=== PATIENT | male | born 1965 | race African-American/Black ===

== ENCOUNTER 2016-03-08 16:45 | Outpatient (RCR) | payer OTHER | END 2016-03-30 09:43 | disposition still patient (30) | LOC: WSPT 16:45 | DX: M54.2 Cervicalgia (principal) | CPT/HCPCS: G0283-GP; G8981-GP; G8982-GP; G8983-GP ==

== ENCOUNTER 2018-01-09 12:00 | Emergency (ER) | payer OTHER ==
[~2018-01-09] VITALS: Ht 172.7 cm; Wt 72.7 kg
[~2018-01-09 12:00] MED LIST: CATAPRES 0.1MG0.1 MG PO; CRESTOR5 MG PO; ELIQUIS 5MG PO; FIORICET 325 MG1 TA1 PO; FLEXERIL 1010 MG/TAB PO; FLONASE SENSIM9.9 ML NS; LEXAPRO 10MG10 MG PO; MEDROL 4MG DOSPA4 MG PO; MITIGARE0.6 MG; PATANOL OPHTHALM5 ML OD; ZESTRIL 20MG TA20 MG PO; ZETIA 10MG TAB10 MG PO; ZYLOPRIM 300MG300 MG PO; ZYRTEC 10MG10 MG PO
[2018-01-09 12:08] VITALS: BP 127/79; PULSE 102; TEMP 98.6
== END 2018-01-09 14:05 | disposition left against medical advice (07) ==
LOC: COL.ER 12:00
DX: R51 Headache (principal)

== ENCOUNTER 2018-01-11 23:25 | Emergency (ER) | payer OTHER ==
[~2018-01-11] VITALS: Ht 172.7 cm; Wt 70.5 kg
[2018-01-11 23:29] VITALS: TEMP 98.6
[2018-01-12] MEDS ORDERED: REGLAN 10MG10 MG/TAB PO (01:31)
[2018-01-12 01:56] VITALS: BP 118/69; PULSE 88
[2018-01-13] MEDS ORDERED: FIORICET 325 MG1 TA1 PO (14:34)
== END 2018-01-12 01:58 | disposition home or self-care (01) ==
LOC: COL.ER 23:25
DX: R51 Headache (principal)
CPT/HCPCS: J1100; J1200; J1885; J2765; J7030

== ENCOUNTER 2018-01-13 12:43 | Emergency (ER) | payer OTHER ==
[~2018-01-13] VITALS: Ht 172.7 cm; Wt 70.5 kg
[~2018-01-13 12:43] MED LIST changes: +REGLAN 10MG10 MG/TAB PO
[2018-01-13 12:59] VITALS: TEMP 97.4
[2018-01-13] MEDS ORDERED: FIORICET 325 MG1 TA1 PO (14:34)
[2018-01-13 14:41] VITALS: BP 128/81; PULSE 70
[2018-01-14] MEDS ORDERED: MEDROL 4MG DOSPA4 MG PO (21:38)
[2018-01-14] MEDS ORDERED: COMPAZINE 110 MG/TAB PO (21:38)
[2018-01-14] MEDS ORDERED: FLEXERIL 1010 MG/TAB PO (21:38)
== END 2018-01-13 14:41 | disposition home or self-care (01) ==
LOC: COL.ER 12:43
DX: R51 Headache (principal); I10 Essential (primary) hypertension; E78.5 Hyperlipidemia, unspecified; Z86.718 Personal history of other venous thrombosis and embolism
CPT/HCPCS: J1885; J2405

== ENCOUNTER 2018-01-14 19:14 | Emergency (ER) | payer OTHER ==
[~2018-01-14] VITALS: Ht 172.7 cm; Wt 70.5 kg
[2018-01-14 19:17] VITALS: TEMP 98.3
[2018-01-14] MEDS ORDERED: COMPAZINE 110 MG/TAB PO (21:38)
[2018-01-14] MEDS ORDERED: MEDROL 4MG DOSPA4 MG PO (21:38)
[2018-01-14] MEDS ORDERED: FLEXERIL 1010 MG/TAB PO (21:38)
[2018-01-14 22:10] VITALS: BP 140/94; PULSE 96
== END 2018-01-14 22:11 | disposition home or self-care (01) ==
LOC: COL.ER 19:14
DX: R51 Headache (principal); I10 Essential (primary) hypertension; M48.02 Spinal stenosis, cervical region; Z79.899 Other long term (current) drug therapy
CPT/HCPCS: J0780; J1200; J1630; J1885; J7030

== ENCOUNTER → 2018-01-16 | Outpatient (CLI) | payer OTHER ==
[~2018-01-16] MED LIST changes: +COMPAZINE 110 MG/TAB PO
== END ==
LOC: MHCPAIN 15:36
DX: G89.29 Other chronic pain (principal); M47.812 Spondylosis without myelopathy or radiculopathy, cervical region; R51 Headache; M54.81 Occipital neuralgia
CPT/HCPCS: G0463

== ENCOUNTER → 2018-01-18 | Outpatient (CLI) | payer OTHER ==
[2018-01-18 15:32] LABS: BASO % 0.4 % (0.0-2.0); GRAN # 7.8 (1.4-6.5); GRAN % 81.5 % (42.2-75.2); HEMOGLOBIN 12.1 g/dl (13.5-18.0); LYMPH # 0.8 (1.2-3.4); LYMPH % 8.1 % (20.0-51.0); MEAN CELL VOLUME 86 fl (80.0-100.0); MEAN CORPUSCULAR HEMOGLOBIN 27 pg (27.0-31.0); MEAN CORPUSCULAR HGB CONC 32 g/dl (33.0-37.0); MEAN PLATELET VOLUME 8.8 fl (7.4-10.4); MONO # 0.9 (0.1-0.6); MONO % 9.5 % (1.7-9.3); PLATELET COUNT 337 K/mm3 (130-400); RED BLOOD COUNT 4.41 M/mm3 (4.20-5.60); REDCELL DISTRIBUTION WIDTH-CV 15.5 % (11.5-14.5)
[2018-01-18 15:54] LABS: ERYTHROCYTE SEDIMENTATION RATE 76 mm/hr (0-15)
[2018-01-18 16:02] LABS: ALBUMIN 3.9 gm/dL (3.5-5.0); BILIRUBIN,TOTAL 0.3 mg/dL (0.0-1.0); C-REACTIVE PROTEIN 4.8 mg/dL (0.0-0.9); CALCIUM 9.7 mg/dL (8.4-10.2); CREATININE, serum 1.19 mg/dL (0.66-1.25); POTASSIUM 4.4 mmol/L (3.4-5.0); TOTAL PROTEIN 7.7 gm/dL (6.4-8.2)
== END ==
LOC: COL.LAB 15:05
PROVIDERS: Internal Medicine Infectious Disease
DX: B99.9 Unspecified infectious disease (principal)

== ENCOUNTER → 2018-01-21 | Outpatient (CLI) | payer OTHER | LOC: MHCPAIN 09:06 | DX: M54.12 Radiculopathy, cervical region (principal); M50.90 Cervical disc disorder, unspecified, unspecified cervical region; R51 Headache ==

== ENCOUNTER → 2018-01-28 | Outpatient (CLI) | payer OTHER | LOC: MHCPAIN 09:27 | DX: G89.29 Other chronic pain (principal); M50.90 Cervical disc disorder, unspecified, unspecified cervical region; M54.12 Radiculopathy, cervical region; M54.81 Occipital neuralgia; R51 Headache | CPT/HCPCS: G0463 ==

== ENCOUNTER → 2018-01-31 | Outpatient (CLI) | payer OTHER | LOC: MHCPAIN 09:30 | DX: M54.12 Radiculopathy, cervical region (principal); M50.90 Cervical disc disorder, unspecified, unspecified cervical region ==

== ENCOUNTER → 2018-02-05 | Outpatient (CLI) | payer OTHER | LOC: MHCPAIN 13:25 | DX: G89.29 Other chronic pain (principal); M50.90 Cervical disc disorder, unspecified, unspecified cervical region; M54.81 Occipital neuralgia; R51 Headache | CPT/HCPCS: G0463 ==

== ENCOUNTER → 2018-02-27 | Outpatient (CLI) | payer OTHER | LOC: MHCPAIN 07:55 | DX: G89.29 Other chronic pain (principal); M50.90 Cervical disc disorder, unspecified, unspecified cervical region; M54.81 Occipital neuralgia; R51 Headache | CPT/HCPCS: G0463 ==

== ENCOUNTER → 2018-03-28 | Outpatient (CLI) | payer OTHER | LOC: MHCPAIN 07:42 | DX: M47.812 Spondylosis without myelopathy or radiculopathy, cervical region (principal); M54.12 Radiculopathy, cervical region; R51 Headache | CPT/HCPCS: J1100; J2250; J3010 ==

== ENCOUNTER → 2018-04-30 | Outpatient (CLI) | payer OTHER | LOC: MHCPAIN 10:58 | DX: G89.29 Other chronic pain (principal); M54.81 Occipital neuralgia; R51 Headache; M47.812 Spondylosis without myelopathy or radiculopathy, cervical region | CPT/HCPCS: G0463 ==

== ENCOUNTER → 2018-07-26 | Outpatient (CLI) | payer OTHER | LOC: COL.CARD 08:10 | DX: R55 Syncope and collapse (principal) ==

== ENCOUNTER → 2018-09-30 | Outpatient (CLI) | payer OTHER | LOC: MHCPAIN 10:47 | DX: G89.29 Other chronic pain (principal); M54.81 Occipital neuralgia; M47.812 Spondylosis without myelopathy or radiculopathy, cervical region; R51 Headache | CPT/HCPCS: G0463 ==

== ENCOUNTER → 2018-10-10 | Outpatient (CLI) | payer OTHER | LOC: MHCPAIN 08:03 | DX: M47.812 Spondylosis without myelopathy or radiculopathy, cervical region (principal); M54.12 Radiculopathy, cervical region | CPT/HCPCS: J1100; J2250; J3010 ==

== ENCOUNTER → 2018-12-10 | Outpatient (CLI) | payer OTHER | LOC: MHCPAIN 10:53 | DX: G89.29 Other chronic pain (principal); M54.81 Occipital neuralgia; R51 Headache; M47.812 Spondylosis without myelopathy or radiculopathy, cervical region | CPT/HCPCS: G0463 ==

== ENCOUNTER → 2019-05-06 | Outpatient (CLI) | payer OTHER | LOC: MHCPAIN 10:59 | DX: R51 Headache (principal); M54.81 Occipital neuralgia; G89.29 Other chronic pain | CPT/HCPCS: G0463 ==

== ENCOUNTER → 2019-05-29 | Outpatient (CLI) | payer OTHER | LOC: MHCPAIN 07:51 | DX: M54.2 Cervicalgia (principal) | CPT/HCPCS: J1100; J2250; J2310; J3010 ==

== ENCOUNTER → 2019-08-26 | Outpatient (CLI) | payer OTHER | LOC: MHCPAIN 12:31 | DX: M47.812 Spondylosis without myelopathy or radiculopathy, cervical region (principal); R51 Headache; M54.2 Cervicalgia; G89.29 Other chronic pain | CPT/HCPCS: G0463 ==

== ENCOUNTER → 2019-12-23 | Outpatient (CLI) | payer OTHER | LOC: MHCPAIN 12:15 | DX: M47.812 Spondylosis without myelopathy or radiculopathy, cervical region (principal); M54.2 Cervicalgia; R51.9 Headache, unspecified | CPT/HCPCS: G0463 ==

== ENCOUNTER 2020-01-29 08:16 | Inpatient (IN) | payer OTHER ==
[~2020-01-29] VITALS: Ht 172.7 cm; Wt 75.3 kg
[~2020-01-29 08:16] MED LIST changes: -PATANOL OPHTHALM5 ML OD; +PATANOL OPHTHALM5 ML OU
[2020-02-05] VITALS (12 sets, daily range): BP systolic 73–114; BP diastolic 54–77; PULSE 73–114; TEMP 98.1–98.6
[2020-02-05 05:56] LABS: EOS # 0.1 (0.0-0.7); EOS % 2.3 % (0-4.0); GRAN # 2.3 (1.4-6.5); GRAN % 57.7 % (42.2-75.2); HEMATOCRIT 46.5 % (42.0-52.0); HEMOGLOBIN 15.4 g/dl (13.5-18.0); LYMPH % 25.2 % (20.0-51.0); MEAN CELL VOLUME 88 fl (80.0-100.0); MEAN CORPUSCULAR HEMOGLOBIN 29 pg (27.0-31.0); MEAN CORPUSCULAR HGB CONC 33 g/dl (33.0-37.0); MONO # 0.5 (0.1-0.6); MONO % 13.5 % (1.7-9.3); PLATELET COUNT 191 K/mm3 (130-400); RED BLOOD COUNT 5.29 M/mm3 (4.20-5.60); REDCELL DISTRIBUTION WIDTH-CV 13.8 % (11.5-14.5)
[2020-02-05 06:10] LABS: CALCIUM 9.7 mg/dL (8.4-10.2); CREATININE, serum 1.72 (0.66-1.25); POTASSIUM 4.4 mmol/L (3.4-5.0); TOTAL PROTEIN 7.9 gm/dL (6.4-8.2)
[2020-02-05] MEDS ORDERED: MASON NATURAL2000 IU PO (06:13)
[2020-02-05] MEDS ORDERED: TOPAMAX50 MG PO (06:13)
[2020-02-05 11:43] LABS: HEMATOCRIT 31.7 % (42.0-52.0); HEMOGLOBIN 10.4 g/dl (13.5-18.0)
[2020-02-06] VITALS (16 sets, daily range): BP systolic 83–105; BP diastolic 52–74; PULSE 71–93; TEMP 97.6–98.2
[2020-02-06 06:58] LABS: BASO % 0.2 % (0.0-2.0); GRAN # 3.8 (1.4-6.5); GRAN % 70.4 % (42.2-75.2); LYMPH # 0.9 (1.2-3.4); LYMPH % 15.8 % (20.0-51.0); MEAN CELL VOLUME 89 fl (80.0-100.0); MEAN CORPUSCULAR HGB CONC 33 g/dl (33.0-37.0); MEAN PLATELET VOLUME 9.6 fl (7.4-10.4); MONO # 0.7 (0.1-0.6); MONO % 13.4 % (1.7-9.3); PLATELET COUNT 129 K/mm3 (130-400); RED BLOOD COUNT 2.65 M/mm3 (4.20-5.60); REDCELL DISTRIBUTION WIDTH-CV 13.3 % (11.5-14.5)
[2020-02-06 06:59] LABS: HEMATOCRIT 23.7 % (42.0-52.0); HEMOGLOBIN 7.7 g/dl (13.5-18.0); MEAN CORPUSCULAR HEMOGLOBIN 29 pg (27.0-31.0)
[2020-02-06 07:07] LABS: CALCIUM 8.1 mg/dL (8.4-10.2); CREATININE, serum 1.5 (0.66-1.25); POTASSIUM 4.1 mmol/L (3.4-5.0)
[2020-02-06 15:36] LABS: HEMATOCRIT 20.1 % (42.0-52.0); HEMOGLOBIN 6.7 g/dl (13.5-18.0)
[2020-02-07 03:41] VITALS: BP 90/61; PULSE 77; TEMP 98.7
[2020-02-07 07:57] VITALS: BP 101/66; PULSE 94; TEMP 98.8
[2020-02-07 08:16] LABS: HEMOGLOBIN 8.9 g/dl (13.5-18.0)
[2020-02-07 12:09] VITALS: BP 115/66; PULSE 82; TEMP 98.5
[2020-02-07 15:20] VITALS: BP 114/61; PULSE 79; TEMP 98.2
[2020-02-07 19:50] VITALS: BP 111/72; PULSE 81; TEMP 98.6
[2020-02-07 23:45] VITALS: BP 111/67; PULSE 80; TEMP 98.4
[2020-02-08 04:00] VITALS: BP 96/67; PULSE 75; TEMP 97.9
[2020-02-08 06:44] LABS: HEMATOCRIT 29.3 % (42.0-52.0); HEMOGLOBIN 9.6 g/dl (13.5-18.0)
[2020-02-08 08:14] VITALS: BP 107/71; PULSE 80; TEMP 98.4
[2020-02-08 11:34] VITALS: BP 118/78; PULSE 73; TEMP 98
[2020-02-08 15:26] VITALS: BP 113/72; PULSE 80; TEMP 98.3
[2020-02-08 19:32] VITALS: BP 100/75; PULSE 96; TEMP 98.1
[2020-02-08 23:40] VITALS: BP 97/70; PULSE 97; TEMP 98.1
[2020-02-09 04:15] VITALS: BP 93/71; PULSE 92; TEMP 98.4
[2020-02-09 07:10] VITALS: BP 97/62; PULSE 91; TEMP 98.4
== END 2020-02-09 12:23 | disposition home or self-care (01) | DRG 707 ==
LOC: INPTSU 02-05 05:27 → SURG 02-05 05:27
PROVIDERS: Urology; ADMIT Urology
PROC: 0VT00ZZ Resection of Prostate, Open Approach (ICD-10-PCS; principal; 2020-02-06)
DX: C61 Malignant neoplasm of prostate (principal); D62 Acute posthemorrhagic anemia; K56.7 Ileus, unspecified; I95.9 Hypotension, unspecified; R00.0 Tachycardia, unspecified
CPT/HCPCS: J0690; J1100; J2250; J2370; J2405; J2704; J2795; J3010; J3480; J7050; J7120; P9016

== ENCOUNTER → 2021-02-25 | Outpatient (CLI) | payer OTHER ==
[~2021-02-25] MED LIST changes: +MASON NATURAL2000 IU PO; +TOPAMAX50 MG PO
== END ==
LOC: COL.RAD 07:03
DX: M51.27 Other intervertebral disc displacement, lumbosacral region (principal); M48.061 Spinal stenosis, lumbar region without neurogenic claudication

== ENCOUNTER → 2021-03-30 | Outpatient (CLI) | payer OTHER | LOC: MHCPAIN 10:48 | DX: M47.812 Spondylosis without myelopathy or radiculopathy, cervical region (principal); M54.2 Cervicalgia; M54.81 Occipital neuralgia; R51.9 Headache, unspecified | CPT/HCPCS: G0463 ==

== ENCOUNTER → 2021-04-21 | Outpatient (CLI) | payer OTHER | LOC: MHCPAIN 08:45 | DX: M47.812 Spondylosis without myelopathy or radiculopathy, cervical region (principal); M54.2 Cervicalgia; R51.9 Headache, unspecified | CPT/HCPCS: J1100; J2250; J3010 ==

== ENCOUNTER → 2021-06-21 | Outpatient (CLI) | payer OTHER | LOC: MHCPAIN 11:21 | DX: M54.2 Cervicalgia (principal); M47.812 Spondylosis without myelopathy or radiculopathy, cervical region; R51.9 Headache, unspecified | CPT/HCPCS: G0463 ==

== ENCOUNTER 2021-12-08 21:04 | Emergency (ER) | payer OTHER ==
[~2021-12-08] VITALS: Ht 172.7 cm; Wt 77.3 kg
[2021-12-08 21:19] VITALS: TEMP 98.4
[2021-12-08 21:38] LABS: BASO % 0.8 % (0.0-2.0); EOS # 0.1 K/mm3 (0.0-0.7); EOS % 1.4 % (0.0-4.0); GRAN # 2.4 K/mm3 (1.4-6.5); GRAN % 46.9 % (42.2-75.2); HEMATOCRIT 45.8 % (42.0-52.0); HEMOGLOBIN 15.1 g/dl (13.5-18.0); LYMPH % 39.9 % (20.0-51.0); MEAN CELL VOLUME 89 fl (80.0-100.0); MEAN CORPUSCULAR HEMOGLOBIN 29 pg (27-31); MEAN CORPUSCULAR HGB CONC 33 g/dl (33.0-37.0); MEAN PLATELET VOLUME 9.4 fl (7.4-10.4); MONO # 0.5 K/mm3 (0.1-0.6); MONO % 10.8 % (1.7-9.3); PLATELET COUNT 223 K/mm3 (130-400); RED BLOOD COUNT 5.16 M/mm3 (4.20-5.60); REDCELL DISTRIBUTION WIDTH-CV 13.7 % (11.5-14.5)
[2021-12-08 21:45] LABS: INR 1.1 (0.8-3.0); PROTHROMBIN TIME 12.2 SECONDS (9.7-12.8)
[2021-12-08 21:57] LABS: ALANINE AMINOTRANSFERASE 24 U/L (0-55); ALBUMIN 4.4 gm/dL (3.5-5.0); ALKALINE PHOSPHATASE 119 U/L (40-150); ANION GAP 16 mmol/L (7-16); AST,SGOT 21 U/L (5-34); BILIRUBIN,TOTAL 0.4 mg/dL (0.2-1.2); BLOOD UREA NITROGEN 18 mg/dL (8-26); CALCIUM 9.5 mg/dL (8.4-10.2); CARBON DIOXIDE 17 mmol/L (22-29); CHLORIDE 110 mmol/L (98-107); CREATININE, serum 1.77 mg/dL (0.72-1.25); GLUCOSE 116 mg/dL (70-99); POTASSIUM 3.7 mmol/L (3.5-4.5); SODIUM 143 mmol/L (136-145); TOTAL PROTEIN 8.1 gm/dL (6.2-8.1)
[2021-12-08 21:58] LABS: ALCOHOL(ethanol),MEDICAL < 10 mg/dL (0-10)
[2021-12-08] MEDS ORDERED: CEPHALEXIN500 M1 PO ×2 (23:08)
[2021-12-08] MEDS ORDERED: NORCO 325 MG-51 TAB PO (23:32)
[2021-12-08 23:45] VITALS: BP 144/95; PULSE 110
[2021-12-09] MEDS ORDERED: CEPHALEXIN500 M1 PO (18:06)
== END 2021-12-08 23:46 | disposition home or self-care (01) ==
LOC: COL.ER 21:04
PROVIDERS: Emergency Medicine
DX: S01.511A Laceration without foreign body of lip, initial encounter (principal); Z86.718 Personal history of other venous thrombosis and embolism; Z79.01 Long term (current) use of anticoagulants; W17.89XA Other fall from one level to another, initial encounter
CPT/HCPCS: J2270; J2405; J7120

== ENCOUNTER 2023-02-25 18:19 | Emergency (ER) | payer OTHER ==
[~2023-02-25] VITALS: Ht 172.7 cm; Wt 75.0 kg
[~2023-02-25 18:19] MED LIST changes: +CEPHALEXIN500 M1 PO; +NORCO 325 MG-51 TAB PO
[2023-02-25 18:22] VITALS: TEMP 98.1
[2023-02-25 19:21] LABS: COLLECTION METHOD CLEAN CATCH
[2023-02-25 19:52] LABS: URINE APPEARANCE Cloudy (CLEAR/HAZY); URINE BLOOD 3+ (NEGATIVE); URINE COLOR Amber (YELLOW); URINE GLUCOSE Negative (NEGATIVE); URINE KETONE Negative (NEGATIVE); URINE NITRATE Negative (NEGATIVE); URINE PROTEIN(semi-quant) 1+ (NEGATIVE); URINE UROBILINOGEN 0.2 E.U/dL (0.2-1.0)
[2023-02-25 19:53] LABS: SQUAMOUS EPITHELIAL 0-2 /hpf (0-10); URINE BACTERIA Rare /hpf (NONE SEEN); URINE RBC >50 /hpf (0-2)
[2023-02-25 20:09] LABS: BASO % 0.8 % (0.0-2.0); GRAN # 2.4 K/mm3 (1.4-6.5); GRAN % 60.2 % (42.2-75.2); HEMATOCRIT 45.5 % (42.0-52.0); HEMOGLOBIN 15.1 g/dl (13.5-18.0); LYMPH % 24.2 % (20.0-51.0); MEAN CELL VOLUME 88 fl (80.0-100.0); MEAN CORPUSCULAR HEMOGLOBIN 29 pg (27-31); MEAN CORPUSCULAR HGB CONC 33 g/dl (33.0-37.0); MEAN PLATELET VOLUME 9.3 fl (7.4-10.4); MONO # 0.6 K/mm3 (0.1-0.6); MONO % 14.5 % (1.7-9.3); PLATELET COUNT 161 K/mm3 (130-400); RED BLOOD COUNT 5.19 M/mm3 (4.20-5.60); REDCELL DISTRIBUTION WIDTH-CV 13.1 % (11.5-14.5)
[2023-02-25 20:24] LABS: ALBUMIN 3.8 gm/dL (3.5-5.0); BILIRUBIN,TOTAL 0.4 mg/dL (0.2-1.2); C-REACTIVE PROTEIN 0.45 mg/dL (0.00-0.50); CALCIUM 9.6 mg/dL (8.4-10.2); CREATININE, serum 1.73 mg/dL (0.72-1.25); POTASSIUM 4.1 mmol/L (3.5-4.5); TOTAL PROTEIN 7.6 gm/dL (6.2-8.1)
[2023-02-25] MEDS ORDERED: LEVAQUIN 5500 MG/TA1 PO (23:08)
[2023-02-25] MEDS ORDERED: ZOFRAN ODT4 MG PO (23:08)
[2023-02-25] MEDS ORDERED: PERCOCET 325 MG1 TA2 PO (23:08)
[2023-02-25 23:15] VITALS: BP 112/94; PULSE 78
== END 2023-02-25 23:15 | disposition home or self-care (01) ==
LOC: COL.ER 18:19
PROVIDERS: Nurse Practitioner
DX: N13.2 Hydronephrosis with renal and ureteral calculous obstruction (principal)
CPT/HCPCS: J2270; J7030; Q9967

== ENCOUNTER 2024-01-09 12:33 | Emergency (ER) | payer OTHER ==
[~2024-01-09] VITALS: Ht 172.7 cm; Wt 72.7 kg
[~2024-01-09 12:33] MED LIST changes: +LEVAQUIN 5500 MG/TA1 PO; +PERCOCET 325 MG1 TA2 PO; +ZOFRAN ODT4 MG PO
[2024-01-09 13:19] VITALS: TEMP 98.2
[2024-01-09] MEDS ORDERED: PROTONIX 40MG T40 MG PO (16:28)
[2024-01-09] MEDS ORDERED: ZYRTEC 10MG10 MG PO (16:28)
[2024-01-09] MEDS ORDERED: ZITHROMAX Z PA250 MG PO (16:28)
[2024-01-09 16:36] VITALS: BP 119/82; PULSE 70
== END 2024-01-09 16:36 | disposition home or self-care (01) ==
LOC: COL.ER 12:33
DX: K21.00 Gastro-esophageal reflux disease with esophagitis, without bleeding (principal); M54.2 Cervicalgia; R07.9 Chest pain, unspecified